=== PATIENT | male | born 1945 | race Caucasian/White ===

== ENCOUNTER → 2024-10-06 10:04 | Outpatient (REF) | payer OTHER, SELFPAY | LOC: RAD 10:04 | PROVIDERS: ATTENDING PHYSICIAN Student in an Organized Health Care Education/Training Program; FAMILY PHYSICIAN Internal Medicine | DX: I35.0 Nonrheumatic aortic (valve) stenosis (principal) | CPT/HCPCS: 74174; 75572; Q9967 ==

== ENCOUNTER 2024-10-20 09:12 | Day surgery (SDC) | payer OTHER, SELFPAY ==
[2024-10-20] VITALS (11 sets, daily range): BP systolic 118–132; BP diastolic 58–80; BMI 35.7
[2024-10-20 10:02] LABS: Glucose - Point of Care 125 mg/dl (70-99)
--- NOTE | 2024-10-20 11:05 | ITS.CL.PN ---
Addendum entered and electronically signed by Edison Richard MD 10/20/24 11:31:
Copy to: Dr. Alexx Holbrook MD (furnace builder); Klaus Abel DO (PCP)
Original Note:
[facility] - Procedure Note
Procedure
Procedure Note:
CARDIAC CATHETERIZATION REPORT
Date of Procedure: 10/20/2024
Referring: Dr. Alexx Holbrook MD
Indication: severe symptomatic aortic valve stenosis
PROCEDURE: coronary angiography
ACCESS: 6F right radial artery (closure: radial band)
CATHETERS
1. 6F JR4
2. 6F JL4
MODERATE SEDATION: 30 minutes of moderate sedation was utilized. An independent medical assistant cardiology was present to assist with and help manage the patient's level of consciousness and physiologic status.
HEMODYNAMIC DATA
AO 123/60 (mean 92) mmHg
CORONARY ANGIOGRAPHY
Dominance: Right
LM: Large vessel with minimal disease
LAD: Large vessel giving rise to a small D1 and small D2 before terminating as a diminutive vessel apically. There is mild diffuse disease
LCx: Large vessel giving rise to a medium caliber OM1 and medium caliber LPL branch. There is mild mild disease.
RCA: Large vessel giving rise to a large RPDA and small RPL branch. There is a focal 50% stenosis in the mid vessel and otherwise mild diffuse disease.
RADIATION: dose 594 mGy; DAP 36.6 Gy*cm2; fluoroscopy time 9.1 min
CONCLUSIONS: nonobstructive coronary artery disease as described in a right dominant system
RECOMMENDATIONS
1. Secondary prevention of coronary artery disease
2. Proceed with TAVR workup
Copy to: Dr. Alexx Holbrook MD (furnace builder); [ ] (PCP)
Signed: Edison Richard MD, PhD
== END 2024-10-20 14:53 | disposition home or self-care (01) ==
LOC: CATH 09:12
PROVIDERS: ATTENDING PHYSICIAN Student in an Organized Health Care Education/Training Program; FAMILY PHYSICIAN Internal Medicine; OTHER PHYSICIAN Internal Medicine Cardiovascular Disease
DX: I35.0 Nonrheumatic aortic (valve) stenosis (principal); I25.10 Atherosclerotic heart disease of native coronary artery without angina pectoris; I10 Essential (primary) hypertension; E78.5 Hyperlipidemia, unspecified; E11.9 Type 2 diabetes mellitus without complications; Z79.82 Long term (current) use of aspirin; Z79.4 Long term (current) use of insulin; Z79.84 Long term (current) use of oral hypoglycemic drugs
CPT/HCPCS: 99152; 99153; C1894; 82962; 93454; Q9967

== ENCOUNTER 2024-12-14 07:25 | Inpatient (IN) | payer OTHER, SELFPAY ==
[2024-12-01 09:22] VITALS: BMI 38.9
[2024-12-01 09:57] LABS: Hematocrit 36.7 % (39.0-52.0); Hemoglobin 11.7 g/dL (13.0-18.0); Mean Corp Hgb Conc. 31.9 g/dL (33.0-37.0); Mean Corpuscular Volume 76.8 fL (80.0-94.0); Nucleated Red Blood Cells % 0 % (-); Platelet Count 211 10^3/uL (130-400); Red Cell Dist. Width 15.5 % (11.5-14.5)
[2024-12-01 10:08] LABS: Urine Character Clear (Clear)
[2024-12-01 10:10] LABS: INR 0.96; PT 13.1 Sec (11.4-14.6)
[2024-12-01 10:27] LABS: Urine Squamous Cell >30 /LPF (Few)
[2024-12-01 10:28] LABS: Urine Red Blood Cell 0-2 /HPF (0-2)
[2024-12-01 10:44] LABS: ALT (SGPT) 14 U/L (0-50); AST (SGOT) 18 U/L (17-59); Albumin 4.5 g/dl (3.5-5.0); Alkaline Phosphatase 48 U/L (38-126); Blood Urea Nitrogen 23 mg/dl (9-20); Calcium 10.3 mg/dl (8.4-10.2); Carbon Dioxide 29 mmol/L (22-30); Chloride 104 mmol/L (98-107); Estimated Creatinine Clearance 52 ml/min; Glucose 143 mg/dl (70-99); Potassium 4.8 mmol/L (3.5-5.1); Sodium 139 mmol/L (135-145); Total Protein 7.3 g/dl (6.3-8.2); eGFR > 60.00
[2024-12-01 12:25] LABS: Glycohemoglobin (HgbA1c) 7.2 % (4.0-5.6)
--- NOTE | 2024-12-01 14:32 | CM ---
spoke to pt in PAT's, we discussed preop TAVR instructions. he is prev indep, lives with his in a 1 story home with 5 steps to enter. he has the TAVR educ book, soap and instructions. he is agreeable to a f/u visit from the ct transitional care
nurse after dc. plan isf or TAVR 12/14, cm role explained and all questions answered.
[2024-12-14] VITALS (17 sets, daily range): BP systolic 94–159; BP diastolic 52–79
[2024-12-14 08:10] LABS: Glucose - Point of Care 75 mg/dl (70-99)
--- NOTE | 2024-12-14 08:36 | W.CVOR.SURPR ---
CVOR Surgeon Immed Pre Op
-
I have examined this patient prior to performance of the scheduled procedure.
The patient's condition is unchanged from the time of the dictated/written History and
Physical and the patient is able to undergo the scheduled procedure.
Full rescue
TF TAVR
[2024-12-14] MEDS: ANCEF 10 IV (09:27)
[2024-12-14 10:37] LABS: ACT-LR - POC 285 Seconds (116-155)
--- NOTE | 2024-12-14 10:54 | W.PN.CT.SURG ---
CT Surgery Operative Note
-
OPERATIVE REPORT
Preoperative Diagnosis: Severe aortic valve stenosis, symptomatic
Postoperative Diagnosis: Same
Procedure(s) Performed: Right trans femoral TAVR with a 26mm, nominal, Davis TAVR valve
Date of Procedure: 12/14/24
Comorbidities:
1. Severe aortic stenosis, symptomatic
2. CAD
3. HLD
4. HTN
5. Thyroid Disorder
6. Acute on Chronic Congestive Heart Failure with Volume Overload, LVEPD 30mmHg
Cardiac Surgeon: Rashid Wolfe MD, MS
Rn Urgent Care: Jaya Richard MD
Anesthesia: Conscious Sedation and Local Analgesia
EBL: 100cc
Products: none
Implant: 26mm DAVIS Resilia Shaan TAVR Valve, SN: [id number]
Indication(s) for Procedures: 79-year-old male with symptomatic severe aortic stenosis. CT-TAVR protocol revealed acceptable anatomy for TAVR access and implantation.
Start time: 0954hrs
Deployment time: 1029hrs
End time: 1044hrs
Radiation Dose (mGy): 265
DAP (cm2.Gy): 26.8
Fluoroscopy time (minutes): 7.3
Contrast volume (ml): 124
TAVR gradient (mmHg): 5mmHg
Heparin Dose: 8500+2000units
Protamine Dose: 30mg
Final Valve Positionin/15
LVEPD: 30mmHG
Findings: Preoperative LVEF was 60% and was 60% following TAVR without inotropic support. Function was overall normal without regional wall motion abnormalities or dyskinesia. The aortic valve was well seated without detectable PVL and mean gradient
across the new valve was 5mmHg. There was an initial LBBB that was new but then returned to sinus while on the union laborer table. The temp wire was removed. There was successful placement of 26mm Nominal Davis TAVR valve without acute complications.
An LVEPD was measured and found to be 30mmHg indicating acute on chronic heart failure with significant volume overload.
Access:
1. Device - right common femoral artery, perclose x 2
2. Pigtail - left common femoral artery [+ 6Fr angioseal]
3. Transvenous Pacer - left common femoral artery
Description of Procedure: The patient was taken to the union laborer. Their identity and procedure to be performed were verified and they were positioned supine on the union laborer table. Induction via conscious sedation. The patient was then prepped and
draped from chin to thigh in a sterile fashion. A preoperative time-out was performed with all members of the team present. Arterial and venous access was performed using fluoroscopy and ultrasound guidance with micropuncture and Seldinger
technique. Two perclose devices were used on the device side followed by access to the aorta with a stiff wire to facilitate E-sheath placement. Heparin was given. A stiff straight wire and AL-1 catheter was used to cross the aortic valve. An LVEDP
was measured. The stiff wire was exchanged for an extra stiff coiled tip wire. The valve was prepped and mounted on to the device carrier. An ACT of >250 was achieved. We verified x 3 that the valve was mounted in the correct orientation with the
skirt of the valve directed toward the tip of the device carrier. We advanced the device into the descending thoracic aorta where the valve was them mounted onto the balloon under fluoroscopy. The device was flexed and advanced over the arch into
the root and positioned across the aortic valve. Contrast fluoroscopy was used to visualize the prosthesis across the valve and to guide positioning. A pigtail catheter in the RCC as used as a guide. We aimed to have the bottom of the device marker
at the annular hinge point. The device sheath was pulled back. We performed a quick pre-deployment time out. The pacer was turned on and had capture. Blood pressure fell accordingly, angiography was done to verify the intended final placement and
the valve was deployed with 5 seconds of rapid pacing to nominal volume. The balloon was deflated and the pacer was turned off. We had recovery of vitals. The device carrier was unflexed and positioned back in the descending thoracic aorta. A
transthoracic echocardiogram was performed. The device was removed from the E-Sheath maintaining wire access followed by removal of the E-sheath as we cinched down the perclose devices. There was acceptable hemostasis. The pigtail was withdrawn into
the descending/abdominal and completion aortogram with runoff run-off angiography was performed. There was no stenosis or dissection of bilateral iliofemoral systems. There was acceptable hemostasis of bilateral groins and manual pressure was held
following wire removal. Low dose protamine was administered after checking another ACT.
All instrument, sponge, and needle counts were confirmed to be correct x 2 at the end of the operation. The patient was transferred to the cardiac intensive care unit in stable condition.
I, Dr. Rashid Wolfe, was present, scrubbed for, and performed all critical elements of this procedure.
Rashid Wolfe MD
Cardiothoracic Surgeon
[facility]
This operative dictation was created using the GEOLID dictation system. Please excuse any grammatical, typographical, or 'sound alike' errors
--- NOTE | 2024-12-14 10:56 | ITS.CL.PN ---
Electrical Manager - Procedure Note
Procedure
Procedure Note:
TRANSCATHETER AORTIC VALVE REPLACEMENT REPORT
Date of Procedure: 12/14/2024
Referring: Dr. Alexx Holbrook MD
Indication: symptomatic severe aortic valve stenosis
Operators: Edison Richard MD, PhD (interventional cardiology); Dr. Rashid Wolef MD (CT surgery)
Anesthesia: conscious sedation provided by the anesthesia staff
PROCEDURE: transfemoral, transcatheter aortic valve replacement with an Rangel Shaan S3 Ultra 26 mm valve
ACCESS:
1. 6F left femoral vein (closure: manual hemostasis) - Ultrasound was utilized for vascular access. The vessel was visualized under ultrasound and noted to be patent. An image of the vessel was stored permanently in the patient's medical record.
Under direct ultrasound guidance, vascular access was obtained using a modified Seldinger technique and a 6 Barbadian sheath was placed.
2. 6F left common femoral artery (closure: Angioseal) - Ultrasound was utilized for vascular access. The vessel was visualized under ultrasound and noted to be patent. An image of the vessel was stored permanently in the patient's medical record.
Under direct ultrasound guidance, vascular access was obtained using a modified Seldinger technique and a 6 Barbadian sheath was placed.
3. 14 F right common femoral artery (closure: Perclose x2) - Ultrasound was utilized for vascular access. The vessel was visualized under ultrasound and noted to be patent. An image of the vessel was stored permanently in the patient's medical
record. Under direct ultrasound guidance, vascular access was obtained using a modified Seldinger technique and a 6 Barbadian sheath was placed.
HEMODYNAMIC DATA
LVEDP 30 mmHg
PROCEDURE NARRATIVE:
The patient was prepped and draped in standard sterile fashion. Conscious sedation was provided by the anesthesia staff. 6F left femoral vein and left common femoral artery access was obtained with ultrasound guidance using micropuncture technique
with verification of appropriate arteriotomy location via hand injection angiography. A temporary venous pacing wire was advanced via the left femoral vein to the right ventricle under fluoroscopic guidance with appropriate capture verified. A 5F
pigtail catheter was advanced via the left common femoral artery and seated in the right coronary cusp. Angiography was performed to verify the co-planar angle.
8F right common femoral artery access was obtained with ultrasound guidance using micropuncture technique with verification of appropriate arteriotomy location via hand injection angiography. The arteriotomy was preclosed with two Perclose sutures
followed by replacement of the 8F sheath. Using an AL1 catheter, an Amplatz Extrastiff wire was placed in the descending thoracic aorta. The 8F sheath was removed and the 14 F Rangel E-sheath was inserted over the Extrastiff wire and into the
descending aorta. Heparin 8000 units was given. The AL1 catheter was re-advanced through the E-sheath to the level of the ascending aorta. The Extrastiff wire was exchanged for a soft tipped straight wire which was used to cross the aortic valve and
deposit the AL1 in the LV apex. A J-wire was used to exchange the AL1 for a pigtail catheter in the LV and LVEDP was measured. An Amplatz Extrastiff wire with curved proximal end was advanced through the pigtail catheter and seated in the LV apex.
ACT was checked and confirmed to be >300 seconds.
The valve was brought to the table with orientation and deployment contrast volume verified. The valve was advanced over the Extrastiff wire and into the descending aorta. The balloon was withdrawn, and the valve was mounted on the balloon. The
valve was advanced over the aortic arch and into the aortic valve annulus. The pusher device was withdrawn. Low volume aortography confirmed valve positioning. The valve was deployed during rapid ventricular pacing. The balloon was walked back to
the descending aorta while leaving the wire in place. The patient was resuscitated by anesthesia with recovery of adequate blood pressure. Telemetry demonstrating sinus rhythm. Aortography demonstrated good valve positioning, adequate coronary
filling, and no aortic valve insufficiency. Echocardiography confirmed no aortic insufficiency. Mean valve gradient was 5 mmHg. The valve deployment system was removed.
The Rangel E sheath was removed, and hemostasis obtained with the two Perclose sutures. Protamine 30 mg was given. Aortoiliac angiography demonstrated no evidence of iliofemoral dissection/perforation and good runoff below the common femoral artery
bilaterally. The pacemaker and the pigtail catheter were removed. The left femoral artery sheath was removed using a 6F Angioseal. The left femoral venous sheath was removed with manual pressure.
RADIATION: dose 265 mGy; DAP 26.8 Gy*cm2; fluoroscopy time 7.3 min
CONCLUSIONS
1. successful placement of a Rangel SHAAN S3 Ultra 26 mm transcatheter aortic valve via right transfemoral approach with no acute complications
2. acute on chronic systolic heart failure with elevated filling pressures (LVEDP = 30)
Copy to: Dr. Alexx Holbrook MD (metal polisher and buffer apprentice); Dr. Klaus Abel DO (PCP)
Signed: Edison Richard MD, PhD
[2024-12-14 11:24] LABS: Glucose - Point of Care 125 mg/dl (70-99)
[2024-12-14] MEDS: ANCEF IV (11:27)
[2024-12-14] MEDS: LASIX 40 MG IV (11:51)
--- NOTE | 2024-12-14 12:59 | CM ---
Chart reviewed. Patient is in the OR today. Patient is independent of ADLS, lives with his in a 1 STH, 5 OSMEL, 0 DME. Plan is for the patient to return home with CT Transitional RN. CM to follow
--- NOTE | 2024-12-14 13:30 | W.DCSUMMARY ---
Discharge Summary
Discharge Data
Date of Admission: 12/14/24
Date of Discharge: 12/15/24
-
Pending Results: No
Hospital Course
Primary care physician: Dr. Klaus Abel
Outpatient bag sorter: Dr. Edison Richard
Inpatient consultants: [facility]
Procedures:
1. Right transfemoral TAVR (Rangel JAYNE S3 ultra 26 mm) on 12/14/[address] Wolfe and Dr. Ruiz
Primary Diagnosis:
1. Severe symptomatic aortic stenosis
Secondary Diagnoses:
1. Hypertension
2. Hyperlipidemia
3. CAD with prior OH (2009) and PCI
4. Insulin-dependent diabetic
5. Neuropathy
6. Hypothyroidism
HPI: Mr. Erich Hayward is an 79-year-old male who presented for outpatient consultation with the structural heart team at [facility] due to his progressive dyspnea on exertion. He was found to have severe, symptomatic aortic stenosis in which he was
referred for TAVR. He was electively admitted on 12/14/2024 in which he underwent a right transfemoral TAVR with Dr. Rashid Wolfe and Dr. Edison Ruiz.
Hospital course: Mr. Erich Hayward is an 79-year-old male who presented for outpatient consultation with the structural heart team at [facility] due to his progressive dyspnea on exertion. After undergoing extensive outpatient diagnostic testing for
consideration of intervention of his aortic valve he was determined to be suitable for an elective TAVR. On 12/14/2024 he was electively admitted and underwent a right transfemoral TAVR with placement of an Rangel JAYNE S3 ultra [address] Wolfe and Dr. Ruiz. Please see interventional list and surgeons postoperative reports for complete details of procedure. Intraoperatively, there were no significant events and the patient went directly to Clinical Documentation Developer recovery. He was
neurologically intact with stable bilateral groin sites. He was transferred to the interventional unit for the remainder of his recovery. His postoperative TTE showed an EF of 55%, aortic valve peak/mean gradient of 10/5, respectively, without any
paravalvular leak. Post procedure EKG showed sinus rhythm with a left anterior fascicular block which was unchanged from his preoperative EKG. On postoperative day 1, he was ambulating within the room without difficulty, tolerating his diet,
denied any symptoms associated with his procedure. His weight was 100.8 kilograms at time of discharge with preoperative weight of 102.7 kg. Home medications were resumed with a long-term plan to continue aspirin 81 mg daily status post TAVR.
Repeated EKG on postop day 1 showed NSR with sinus arrhythmia and LAD in which no significant change was found. Repeat TTE showed EF of 55-60%, NRWMA, AV peak/mean gradient of 12/6 without AI. He was deemed stable for discharge with plan to have
home follow-up with the transitional care nursing team. A TTE will be repeated in 30 days following TAVR with outpatient follow-up with his bag sorter. The importance of antibiotics prior to dental procedures for endocarditis prophylaxis was
further shared to the patient upon discharge.
Home medication changes:
- See the list provided below.
Discharge Plan
-
Patient Disposition: Home (Routine Discharge)
Discharge Diagnosis/Procedures: Right Transfemoral TAVR with Rangel Spaien S3 Ultra #26 mm valve on 12/14/[address] Rashid Wolfe & Dr. Edison Richard
Condition: Good
Diet: Low Fat, Low Cholesterol and 2 Gram Sodium
Activity: As tolerated
Driving Restrictions: No driving for 1 week
Bathing Restrictions: OK to Shower
Others Tests: 30 day follow up echo: 01/16/2025 @ 12:40 at the [facility].
You will need lifelong preprocedural/predental antibiotic prophylaxis for any future dental procedures.
Other Services: Cardiac Rehab
Wound Care: No lotions, powders, or creams to puncture sites.
Specialty Instructions: Weigh Daily- Call MD for wt gain/loss 3 lbs overnight/5 lbs in 1 week
Activity Restrictions/Additional Instructions:
Please call [facility] to schedule Cardiac Rehab appointment [phone].
Stand Alone Forms: DC Inst - TransFemoral (TAVR)
Referrals:
CT Transitional Care Nurse [Outside]
Referral Note: The Cardiothoracic Transitional Care Nurse will call you to set up a visit in 1-2 days.
Anna Reddy CRNP [Specified Professional Personl, Cardiology] - 01/22/25 1:00 pm
Klaus Abel MD [Family Provider]
Prescriptions:
New
acetaminophen 325 mg Tablet
650 mg PO Q6HPRN PRN (Reason: SÁNCHEZ, mild pain, or fever >101F) Qty: 0 0RF
Continued
atorvastatin 10 mg Tablet
5 mg PO DAILY
levothyroxine [Synthroid] 50 mcg Tablet
50 mcg PO DAILY
metformin 1,000 mg Tablet
1,000 mg PO BID
losartan 25 mg Tablet
25 mg PO DAILY
aspirin 81 mg Tablet
81 mg PO HS
metoprolol succinate 25 mg Tablet Extended Release 24 Hr
25 mg PO BID
insulin glargine 100 unit/mL (3 mL) Insulin Pen
25 unit SC DAILY
Jardiance 10 mg Tablet
10 mg PO DAILY
alfuzosin 10 mg Tablet Extended Release 24 Hr
10 mg PO HS
Care Plan Goals
Care Plan Goals:
Problem: Readiness for enhanced knowledge related to diagnosis and treatment plan
Goal: Understand your diagnosis and treatment plan needs, including medications if applicable.
Instructions: Know your diagnosis, underlying causes and treatment plan options, including medications if applicable. Consult with your health care team to learn about your diagnosis and treatment plan, including medications if applicable.
Discharge Date and Time
Print Language: PARAGUAYAN
[2024-12-14] MEDS: ANCEF 5 IV (16:38)
--- NOTE | 2024-12-14 18:31 | PTCARENOTE ---
Pt received from recovery post TAVR. Pt denied any discomfort. Neuro assessment at pt's baseline with right eyelid drooping at times and his right eyebrow does not raise as high as the left one. Pt has a history of bells palsy. Right femoral
dressing changed once for oozing, steristrip applied. Left femoral site with dry and intact dressing, no sign of bleeding or hematoma. Pt OOB with assistance, walking in halls with supervision without problem. Pt voiding in large quantities after
diuretic. Telemetry initially sinus beverley at a rate of 38-50, up to 70-80's after bedrest ended.
[2024-12-14] MEDS: LOW STRENGTH ASPIRIN 81 MG PO (22:06)
[2024-12-14] MEDS: TYLENOL 650 MG PO (22:08)
[2024-12-14 22:46] LABS: Glucose - Point of Care 210 mg/dl (70-99)
--- NOTE | 2024-12-15 02:37 | PTCARENOTE ---
Assumed care on pt at 1900, aaox3, denies CP or SOB, neurochecks WNL. b/l groin sites CDI, no bleeding or hematoma noted. SR on the monitor, HR 60-70's, BP stable. No urinary complaints, voiding clear yellow urine. Call marcos within reach, POC
ongoing.
[2024-12-15 04:34] VITALS: BP 142/66
[2024-12-15 04:58] VITALS: BMI 38.2
[2024-12-15 05:00] LABS: Hematocrit 33.4 % (39.0-52.0); Hemoglobin 10.9 g/dL (13.0-18.0); Mean Corp Hgb Conc. 32.6 g/dL (33.0-37.0); Mean Corpuscular Volume 73.6 fL (80.0-94.0); Platelet Count 180 10^3/uL (130-400); Red Cell Dist. Width 14.8 % (11.5-14.5)
[2024-12-15 05:26] LABS: Blood Urea Nitrogen 23 mg/dl (9-20); Calcium 10.1 mg/dl (8.4-10.2); Carbon Dioxide 28 mmol/L (22-30); Chloride 100 mmol/L (98-107); Estimated Creatinine Clearance 62 ml/min; Glucose 146 mg/dl (70-99); Potassium 4.0 mmol/L (3.5-5.1); Sodium 135 mmol/L (135-145); eGFR > 60.00
[2024-12-15] MEDS: SYNTHROID 50 MCG PO (06:31)
--- NOTE | 2024-12-15 07:53 | W.PN.CT ---
Today's Communication / Plan
-
POD#1
-hemodynamially stable
-NSR 60s
-spo2 96% on RA
-OOB as tolerates
-hopeful home today
-dispo planning
Assessment / Plan
-
s/p Right trans femoral TAVR with a 26mm, nominal, Rangel TAVR valve with Nazia Wolfe & Joseph 12/14/24 - POD#1
-severe
-HTN
-HLD
-hx SD 2009
-CAD s/p PCI
-IDDM
-neuropathy
-hypothyroid
-[place] with BL hearing aides
Discussed patient care with: Care Team
Subjective
Procedure
-s/p Right trans femoral TAVR with a 26mm, nominal, Rangel TAVR valve with Nazia Fitzpatrick 12/14/24
-
Date of Service: December 15, 2024
Objective Data
-
Lab Results
12/15/24 04:43
12/15/24 04:43
PT 13.1 Sec (11.4-14.6) 12/01/24 09:34
INR 0.96 12/01/24 09:34
Vital Signs
Vital Signs
Temp Pulse Resp BP Pulse Ox
97.8 F 67 20 142/66 96
12/15/24 04:44 12/15/24 05:30 12/15/24 04:44 12/15/24 04:34 12/15/24 04:44
CT Intake/Output/Weight
12/14/24 12/15/24 12/15/24
18:59 06:59 18:59
Intake Total 780 / 1020 240 / 1020
Output Total 2049 / 2349 300 / 2350
Balance -1270 / -1330 -60 / -1330
SaO2: 96
Physical Exam
-
General: Awake, Oriented and AOx3
Cardiovascular: Regular rate & rhythm
Respiratory: Clear and Equal
Sternum: Stable
Incision: Clean and Dry
Extremities: No Edema
Data Reviewed
-
Lab Results: Results Reviewed
Medications: Active Meds Reviewed
Chest X-Ray: Image Reviewed
Vital Signs / Labs
-
Vital Signs and Labs:
Temp Pulse Resp BP Pulse Ox
97.8 F 67 20 142/66 96
12/15/24 04:44 12/15/24 05:30 12/15/24 04:44 12/15/24 04:34 12/15/24 04:44
12/15/24 04:43
12/15/24 04:43
12/14/24 12/14/24 12/14/24
10:20 11:12 22:44
RBC
Hgb
Hct
MCV
MCH
MCHC
RDW
BUN
Glucose
POC Glucose 125 H 210 H
POC ACT Low Range 285 H
12/15/24
04:43
RBC 4.54 L
Hgb 10.9 L
Hct 33.4 L
MCV 73.6 L
MCH 24.0 L
MCHC 32.6 L
RDW 14.8 H
BUN 23 H
Glucose 146 H
POC Glucose
POC ACT Low Range
[2024-12-15 09:03] VITALS: BP 156/68
[2024-12-15] MEDS: LIPITOR 5 MG PO (09:05)
[2024-12-15] MEDS: TOPROL XL 25 MG PO (09:05)
[2024-12-15] MEDS: LANTUS 0.25 UNITS SC (09:06)
[2024-12-15] MEDS: FARXIGA 10 MG PO (09:06)
[2024-12-15] MEDS: COZAAR 25 MG PO (09:07)
--- NOTE | 2024-12-15 09:43 | W.PN.ANS.POP ---
Anesthesia Post Operative
- Anesthesia Post Op Note
Vital Signs Stable-See Nursing Note: Yes
Airway Patent: Yes
Adequate Pain Control: Yes
Change in Mental Status: No
Current Postoperative Nausea & Vomiting: No
Anesthesia Complications: No
General Anesthetic Recall: No
Unplanned Admission: No
Post Op Hydration Adequate: Yes
--- NOTE | 2024-12-15 10:51 | CM ---
Chart reviewed. Patient is independent of ADLS, lives with his in a 1 STH, 5 OSMEL, 0 DME. Plan is for the patient to return home with CT Transitional RN. CM to follow
[2024-12-15 12:16] VITALS: BP 134/59
[2024-12-15 13:02] LABS: Glucose - Point of Care 246 mg/dl (70-99)
--- NOTE | 2024-12-15 15:09 | PTCARENOTE ---
Pt up walking in halls, denies any discomfort other than some chronic back pain. Echo done at bedside. Telemetry and IV device removed. Discharge instructions reviewed with pt and his regarding activity and driving restrictions, wound care,
medications,stroke symptoms, reporting cares and concerns and follow up appt's and Echo. Good understanding verbalized. Pt escorted out via wheelchair and discharged to home.
== END 2024-12-15 15:00 | disposition home or self-care (01) | DRG 266 ==
LOC: IVU 07:25
PROVIDERS: Physician Assistant Medical; ADMITTING PHYSICIAN Thoracic Surgery (Cardiothoracic Vascular Surgery); CONSULT PHYSICIAN Student in an Organized Health Care Education/Training Program; FAMILY PHYSICIAN Internal Medicine
PROC: 02RF38Z Replacement of Aortic Valve with Zooplastic Tissue, Percutaneous Approach (ICD-10-PCS; 2024-12-14)
DX: I35.0 Nonrheumatic aortic (valve) stenosis (principal); I50.23 Acute on chronic systolic (congestive) heart failure; I25.10 Atherosclerotic heart disease of native coronary artery without angina pectoris; E78.5 Hyperlipidemia, unspecified; I11.0 Hypertensive heart disease with heart failure; E03.9 Hypothyroidism, unspecified; I44.4 Left anterior fascicular block; E11.40 Type 2 diabetes mellitus with diabetic neuropathy, unspecified; H91.93 Unspecified hearing loss, bilateral; Z97.4 Presence of external hearing-aid; Z79.4 Long term (current) use of insulin
CPT/HCPCS: 33361; 36415; 71045; 71046; 80048; 80053; 81003; 81015; 82248; 82962; 83036; 83880; 85025; 85027; 85347; 85610; 86850; 86900; 86901; 87070; 93005; 93308; 93321; 93325; C1760; C1769; C1894; Q9967

== ENCOUNTER 2024-12-25 10:19 | Emergency (ER) | payer OTHER, SELFPAY ==
[2024-12-25 10:32] VITALS: BP 147/108
[2024-12-25 11:24] LABS: ALT (SGPT) 14 U/L (0-50); AST (SGOT) 20 U/L (17-59); Albumin 4.4 g/dl (3.5-5.0); Alkaline Phosphatase 69 U/L (38-126); Blood Urea Nitrogen 22 mg/dl (9-20); Calcium 9.6 mg/dl (8.4-10.2); Carbon Dioxide 22 mmol/L (22-30); Chloride 104 mmol/L (98-107); Glucose 170 mg/dl (70-99); Potassium 4.3 mmol/L (3.5-5.1); Sodium 137 mmol/L (135-145); Total Protein 7.2 g/dl (6.3-8.2); eGFR > 60.00
--- NOTE | 2024-12-25 12:15 | ED.GENMED ---
Addendum entered and electronically signed by Zeny Covington PA-C 12/28/24 08:48:
Patient's urine was positive for Serratia
It was resistant to cefazolin which the patient was on Keflex. I called him and he called back saying that he is feeling that his urinary frequency is better however he is having some low back pain but that is chronic for him and he does not feel
like it is related to his urine infection. He is certainly not having any fevers or chills, nausea or vomiting. He did have a significant leukocytosis but did have a CT without any obstructive uropathy. Patient was given the option to return to
the ER for evaluation, but he says he feels well enough and would like to try switching the antibiotic. He actually happens to have an appointment with his family doctor later today. So I felt comfortable with him having this close follow-up.
Cefdinir twice daily for 10 days called into the pharmacy.
Original Note:
History of Present Illness
<Gillian Gloria MD, Resident - Last Filed: 12/25/24 15:11>
General
Chief Complaint: Male Genito-Urinary Symptoms
Source: patient and significant other
Exam Limitations: none
Time Seen by Provider: 12/25/24 12:11
Nursing documentation reviewed up to this point in time: agreed with
History of Present Illness
History of Present Illness:
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 Symptoms began yesterday and he had
the urge to urinate every 5 minutes or so. He was unable to produce much urine during these pants but still has the urge and had to go to the bathroom. He mentions that he did not take his insulin yesterday but did remember to take it last night
and this morning. He does not report any fever, chills, but does have some bilateral lower extremity edema more than normal along with nausea and shortness of breath. He has been taking his alfuzosin regularly, took one last night and then took
one this morning. Says his sugars have been controlled at home with his last A1c being 7.2. He says currently his urge to urinate is much diminished than yesterday. His symptoms have improved and he is even having trouble giving a urine sample at
this moment.
Past History
<Gillian Gloria MD, Resident - Last Filed: 12/25/24 15:11>
Past History
ED Past Medical History: CAD, HTN, Hypercholesterolemia, IDDM, [place], Valvular disease, Hypothyroidism and Other (Prostatic hypertrophy)
ED Past Surgical History: Cardiac (Cath 2024, TAVR 2024) and Orthopedic (Bilateral knee+shoulder replacement)
Patient has exhibited threatening behavior?: No
Social History
Tobacco: Non-smoker
Alcohol: None
Drug: None
Personal:
Living: with family
Employment: Retired
Review of Systems
<Gillian Gloria MD, Resident - Last Filed: 12/25/24 15:11>
Review of Systems
Allergies reviewed?: Yes
Constitutional: Denies fever, fatigue or chills
EENT: Reports no symptoms
Respiratory: Reports no symptoms
Cardiac: Reports diaphoresis
ABD/GI: Reports nausea
: Reports frequency and urgency
Musculoskeletal: Reports edema (mild bilateral lower extremity edema)
Skin: Reports no symptoms
Neurological: Reports other (Lightheaded)
Endocrine: Reports no symptoms
Hematologic/Lymphatic: Reports no symptoms
Psychiatric: Reports no symptoms
Phy Exam
<Gillian Gloria MD, Resident - Last Filed: 12/25/24 15:11>
General Physical Exam
General Presentation: well appearing and no apparent distress
General Skin: warm and dry
General Habitus: normal
General Mental: alert
General Hydration: appears well hydrated
Cardiovascular Exam
Cardiovascular Exam: regular rate/rhythm and no murmur
Pulmonary Exam
Pulmonary Exam: lungs clear, no respiratory distress, no crackles and no wheezing
Gastrointestinal Exam
Gastrointestinal Exam: normal bowel sounds, non tender, soft and non distended
Musculoskeletal Exam
Musculoskeletal Exam: edema (Bilateral lower extremity trace pitting edema)
Skin Exam
Skin Exam: normal color, warm/dry and no rash
Psychiatric Exam
Psychiatric Exam: normal mood/affect
Course
<Gillian Gloria MD, Resident - Last Filed: 12/25/24 15:11>
Orders/Labs/Results
Orders:
Orders
12/25/24 11:03
Comprehensive Metabolic Panel Urgent
Blood Culture Urgent
LAM Source: Blood/Venous
Specimen Description:
Date Specimen was Collected: 12/25/24
Time Specimen was Collected: 10:35
12/25/24 13:30
Complete Blood Count/With Diff Urgent
Urinalysis Reflex To Culture Urgent
Date Specimen was Collected: 12/25/24
Time Specimen was Collected: 10:35
Urine Microscopic Reflex Cult Urgent
Urine Culture Urgent
LAM Source: U
Specimen Description:
Date Specimen was Collected: 12/25/24
Time Specimen was Collected: 10:35
12/25/24 14:16
CT Abd/pelvis W Iv Cont Urgent
Comment:
Reason For Exam: increased urinary urgency w/ marked leukocytosis
12/25/24 18:07
Cephalexin Monohydrate [Keflex] 500 mg PO NOW STA
Abnormal Lab Results
12/25/24 12/25/24
11:03 13:30
WBC 28.3 H 10^3/uL
(4.8-10.8)
RBC 4.49 L 10^6/uL
(4.70-6.10)
Hgb 10.9 L g/dL
(13.0-18.0)
Hct 33.1 L %
(39.0-52.0)
MCV 73.7 L fL
(80.0-94.0)
MCH 24.3 L pg
(27.0-31.0)
MCHC 32.9 L g/dL
(33.0-37.0)
RDW 14.6 H %
(11.5-14.5)
Abs Immat Gran (auto) 0.2 H 10^3/uL
(0-0.05)
Absolute Neuts (auto) 23.8 H 10^3/uL
(1.4-6.5)
Absolute Monos (auto) 2.5 H 10^3/uL
(0.1-0.6)
Immature Gran % 0.8 H %
(0-0.5)
Neutrophils % 84.2 H %
(42.2-75.2)
Lymphocytes % 5.9 L %
(20.5-51.1)
BUN 22 H mg/dl
(9-20)
Glucose 170 H mg/dl
(70-99)
Urine Ketones 1+ A
(Negative)
Ur Occult Blood Reflex 3+ A
(Negative)
Leukocyte Esterase Rfl 2+ A
(Negative)
Urine RBC 3-6 A /HPF
(0-2)
Urine WBC (Reflex) 40-50 A /HPF
(0-5)
Urine Bacteria (Reflex) Few A
(Negative)
Urine Glucose 4+ A
(Negative)
Urine Albumin (Reflex) 1+ A
(Neg - Trace)
12/25/24 13:30
12/25/24 11:03
Vital Signs
Initial and Last Documented VS:
Initial Vital Signs
Temp Pulse Resp BP Pulse Ox
99.2 F 92 20 147/108 98
12/25/24 10:32 12/25/24 10:32 12/25/24 10:32 12/25/24 10:32 12/25/24 10:32
Last Documented Vital Signs
Temp Pulse Resp BP Pulse Ox
98.6 F 89 16 110/54 99
12/25/24 14:09 12/25/24 14:09 12/25/24 14:09 12/25/24 14:09 12/25/24 14:09
<Melanie Manzanares, DO - Last Filed: 12/25/24 18:09>
Orders/Labs/Results
Orders:
Orders
12/25/24 11:03
Comprehensive Metabolic Panel Urgent
Blood Culture Urgent
LAM Source: Blood/Venous
Specimen Description:
Date Specimen was Collected: 12/25/24
Time Specimen was Collected: 10:35
12/25/24 13:30
Complete Blood Count/With Diff Urgent
Urinalysis Reflex To Culture Urgent
Date Specimen was Collected: 12/25/24
Time Specimen was Collected: 10:35
Urine Microscopic Reflex Cult Urgent
Urine Culture Urgent
LAM Source: U
Specimen Description:
Date Specimen was Collected: 12/25/24
Time Specimen was Collected: 10:35
12/25/24 14:16
CT Abd/pelvis W Iv Cont Urgent
Comment:
Reason For Exam: increased urinary urgency w/ marked leukocytosis
12/25/24 18:07
Cephalexin Monohydrate [Keflex] 500 mg PO NOW STA
Abnormal Lab Results
12/25/24 12/25/24
11:03 13:30
WBC 28.3 H 10^3/uL
(4.8-10.8)
RBC 4.49 L 10^6/uL
(4.70-6.10)
Hgb 10.9 L g/dL
(13.0-18.0)
Hct 33.1 L %
(39.0-52.0)
MCV 73.7 L fL
(80.0-94.0)
MCH 24.3 L pg
(27.0-31.0)
MCHC 32.9 L g/dL
(33.0-37.0)
RDW 14.6 H %
(11.5-14.5)
Abs Immat Gran (auto) 0.2 H 10^3/uL
(0-0.05)
Absolute Neuts (auto) 23.8 H 10^3/uL
(1.4-6.5)
Absolute Monos (auto) 2.5 H 10^3/uL
(0.1-0.6)
Immature Gran % 0.8 H %
(0-0.5)
Neutrophils % 84.2 H %
(42.2-75.2)
Lymphocytes % 5.9 L %
(20.5-51.1)
BUN 22 H mg/dl
(9-20)
Glucose 170 H mg/dl
(70-99)
Urine Ketones 1+ A
(Negative)
Ur Occult Blood Reflex 3+ A
(Negative)
Leukocyte Esterase Rfl 2+ A
(Negative)
Urine RBC 3-6 A /HPF
(0-2)
Urine WBC (Reflex) 40-50 A /HPF
(0-5)
Urine Bacteria (Reflex) Few A
(Negative)
Urine Glucose 4+ A
(Negative)
Urine Albumin (Reflex) 1+ A
(Neg - Trace)
12/25/24 13:30
12/25/24 11:03
Vital Signs
Initial and Last Documented VS:
Initial Vital Signs
Temp Pulse Resp BP Pulse Ox
99.2 F 92 20 147/108 98
12/25/24 10:32 12/25/24 10:32 12/25/24 10:32 12/25/24 10:32 12/25/24 10:32
Last Documented Vital Signs
Temp Pulse Resp BP Pulse Ox
98.6 F 89 16 110/54 99
12/25/24 14:09 12/25/24 14:09 12/25/24 14:09 12/25/24 14:09 12/25/24 14:09
<Gillian Gloria MD, Resident - Last Filed: 12/25/24 15:11>
MDM/Problems Addressed
Differential Diagnosis Includes:
Urinary tract infection, polyuria from hyperglycemia, prostatic hypertrophy
MDM/Problems Addressed:
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
CMP shows blood glucose levels were 170, patient did take his insulin this morning but half dose.
Awaiting results for CBC, blood cultures were drawn, patient had increased temperature (99.2 F) but not febrile
Awaiting urinalysis, patient unable to give full sample because did not have urge to urinate
May have UTI due to TAVR last week.
Marked Leukocytosis noted on CBC, no anemia
Due to marked leukocytosis and urinalysis showing blood and bacteria, will get CT abdomen pelvis with IV contrast
Chronic conditions affecting care: DM, HTN, CAD and Other (TAVR)
<Gillian Gloria MD, Resident - Last Filed: 12/25/24 15:11>
*Pulse Oximetry
SaO2: 98
Oxygen Mode of Delivery: Room air
Patient hypoxic: no
*Critical Care Note
Total Time (30-74mins, 75-104mins- exclusive of procedures): Not Applicable
ED Attending Note
<Gillian Gloria MD, Resident - Last Filed: 12/25/24 15:11>
-
Portions of this chart may have been created with voice recognition software.� Occasional wrong word or��sound alike� substitutions may have occurred due to the inherent limitations of voice recognition software.
<Melanie Frenchrosmery, DO - Last Filed: 12/25/24 18:09>
ED Attending Note
ED Attending Note:
79-year-old male with history of diabetes and BPH presenting to the emergency department for urinary frequency and urgency. Notes symptoms since yesterday. Denies any dysuria. Denies significant back pain or abdominal pain. Denies fever. Denies
any history of urinary tract infections in the past. Does note that he had a TAVR 1 week ago, denies any issues since the procedure. He notes that he did miss a dose of his insulin at yesterday, however took his insulin last evening and this
morning. Denies additional acute medical complaints. Vital signs are significant for mild hypertension.
On exam patient is resting comfortably, no acute distress, nontoxic. Unremarkable abdominal exam, no tenderness. No focal tenderness to the back, no CVA tenderness. Ultimately suspect uncomplicated UTI. Possibly from being catheterized during
recent surgery. Without present concern for pyelonephritis or ascending urinary tract infection. Patient does note that he missed his insulin yesterday, could have been secondary to hyperglycemia. Labs obtained prior to my assessment, sugar over
170, without concern for DKA. Pending urinalysis.
14:10 -patient had very significant leukocytosis. Could be secondary to recent TAVR, however in the setting of possible underlying infection, will proceed with CT abdomen pelvis to rule out additional acute pathology such as infected stone.
18:00 -CT shows evidence of cystitis. There is also mention of a small pericardial effusion, suspect likely related to postoperative changes from recent TAVR. No present chest pain or difficulty breathing. There is mention of stranding to the
kidneys, however no specific evidence of acute pyelonephritis. Incidental findings of the CAT scan also explained to patient. Ultimately remained stable, no fever on recheck. Feel stable for discharge with close interval follow-up with her
primary care doctor. Strict return precautions communicated to patient verbalized understanding
Discharge Plan
Departure
Prescriptions:
No Action
atorvastatin 10 mg Tablet
5 mg PO DAILY
levothyroxine [Synthroid] 50 mcg Tablet
50 mcg PO DAILY
metformin 1,000 mg Tablet
1,000 mg PO BID
losartan 25 mg Tablet
25 mg PO DAILY
aspirin 81 mg Tablet
81 mg PO HS
metoprolol succinate 25 mg Tablet Extended Release 24 Hr
25 mg PO BID
insulin glargine 100 unit/mL (3 mL) Insulin Pen
25 unit SC DAILY
Jardiance 10 mg Tablet
10 mg PO DAILY
alfuzosin 10 mg Tablet Extended Release 24 Hr
10 mg PO HS
acetaminophen 325 mg Tablet
650 mg PO Q6HPRN PRN (Reason: SÁNCHEZ, mild pain, or fever >101F) Qty: 0 0RF
Referrals:
Klaus Abel MD [Family Provider]
Interventions
Interventions:
*Risk Screen - Suicide Last Done: 12/25/24 10:32
*General Assessment Last Done: 12/25/24 13:15
*Neglect/Abuse Screening Last Done: 12/25/24 10:32
*ED- Fall Risk Assessment Last Done: 12/25/24 13:15
*ED COVID-19 Vaccine History Last Done: 12/25/24 13:15
ED-Male Genitourinary Assessment Last Done: 12/25/24 13:15
Discharge Date and Time
Print Language: NIGERIEN
[2024-12-25 13:14] VITALS: BMI 36.0
[2024-12-25 13:45] LABS: Hematocrit 33.1 % (39.0-52.0); Hemoglobin 10.9 g/dL (13.0-18.0); Mean Corp Hgb Conc. 32.9 g/dL (33.0-37.0); Mean Corpuscular Volume 73.7 fL (80.0-94.0); Platelet Count 168 10^3/uL (130-400); Red Cell Dist. Width 14.6 % (11.5-14.5)
[2024-12-25 14:09] VITALS: BP 110/54
[2024-12-25 14:11] LABS: Urine Character Clear (Clear)
[2024-12-25 14:37] LABS: Nucleated Red Blood Cells % 0 % (-)
[2024-12-25 15:10] LABS: Urine White Cell 40-50 /HPF (0-5)
[2024-12-25] MEDS: KEFLEX 500 MG PO (18:16)
[2024-12-25 18:40] VITALS: BP 127/56
== END 2024-12-25 18:42 | disposition home or self-care (01) ==
LOC: EMR 10:19
PROVIDERS: Emergency Medicine; EMERGENCY PHYSICIAN Student in an Organized Health Care Education/Training Program; FAMILY PHYSICIAN Internal Medicine
DX: N30.90 Cystitis, unspecified without hematuria (principal); E11.9 Type 2 diabetes mellitus without complications; E78.00 Pure hypercholesterolemia, unspecified; I10 Essential (primary) hypertension; E03.9 Hypothyroidism, unspecified; I25.10 Atherosclerotic heart disease of native coronary artery without angina pectoris; I25.2 Old myocardial infarction; I38 Endocarditis, valve unspecified; N40.1 Benign prostatic hyperplasia with lower urinary tract symptoms; Z79.4 Long term (current) use of insulin
CPT/HCPCS: 99284; 74177; 80053; 81003; 81015; 85025; 87040; 87077; 87086; 87186; Q9967